=== PATIENT | female | born 1950 | race Caucasian/White ===

== ENCOUNTER 2017-04-16 08:36 | Inpatient (IN) | payer OTHER ==
[2017-03-27 09:13] VITALS: BMI 32.0
--- NOTE | 2017-03-27 09:50 | PAT Medication Instructions ---
Service Date Mar 27, 2017. Current Home Medication List Amlodipine (Norvasc), 2.5 MG PO QPM Ibuprofen (Advil), 400 MG PO PRN Losartan Potassium (Cozaar), 50 MG PO QAM Meloxicam (Mobic), 7.5 MG PO PRN Metoprolol Succ (Toprol Xl) (Toprol-Xl), 50 MG PO QAM Metoprolol Succ (Toprol Xl) (Toprol-Xl), 25 MG PO QPM Pravastatin (Pravachol ), 10 MG PO QPM Medication Instructions For Your Scheduled Surgery - Check with surgeon for instructions: Ibuprofen (Advil), 400 MG PO PRN Meloxicam (Mobic), 7.5 MG PO PRN - Hold the following medications the morning of surgery: Losartan Potassium (Cozaar), 50 MG PO QAM - Take the following medications the morning of surgery with a sip of water: Metoprolol Succ (Toprol Xl) (Toprol-Xl), 50 MG PO QAM - Take the following medications as scheduled the night before surgery: Pravastatin (Pravachol ), 10 MG PO QPM Metoprolol Succ (Toprol Xl) (Toprol-Xl), 25 MG PO QPM Amlodipine (Norvasc), 2.5 MG PO QPM If you have any questions please call us at [phone] or [phone] or [phone]
[2017-03-27 10:15] LABS: BASO % 0.9 %; BASO ABS # 0.07 K/uL (0-0.2); EOS % 1.8 %; EOS ABS # 0.15 K/uL (0-0.5); HEMATOCRIT 43.8 % (37-47); IG# 0.01 K/uL (0.00-0.02); LYMPH % 14.8 %; MEAN CELL VOLUME 88.8 fL (80-100); MEAN CORPUSCULAR HEMOGLOBIN 30.4 pg (25-34); MEAN CORPUSCULAR HGB CONC 34.2 g/dl (32-36); MONO % 10.3 %; MONO ABS # 0.84 K/uL (0.11-0.59); NEUT % 72.1 %; NEUT ABS # 5.86 K/uL (1.4-6.5); PLATELET COUNT 264 K/uL (130-400); RED CELL DISTRIBUTION WIDTH CV 13.1 % (11.5-14.5); RED CELL DISTRIBUTION WIDTH SD 42.6 fL (36.4-46.3); WHITE BLOOD COUNT 8.13 K/uL (4.8-10.8)
--- NOTE | 2017-03-27 10:23 | DIAGNOSTIC IMAGING REPORT ---
TWO VIEW CHEST CLINICAL HISTORY: Preoperative examination. FINDINGS: PA and lateral chest radiographs are obtained. No prior studies are available for comparison at the time of dictation. The cardiomediastinal silhouette is unremarkable. There is atherosclerotic calcification of the thoracic aorta. The lungs and pleural spaces are clear. There is no pneumothorax. The skeletal structures are osteopenic. The bony thorax appears intact. IMPRESSION: No active disease in the chest. Electronically signed by: Uzair Gomes M.D. 03/27/2017 10:22 AM Dictated Date/Time: 03/27/2017 10:21 AM
[2017-03-27 10:44] LABS: INR 0.9 (0.9-1.1); PTT PATIENT 27.1 SECONDS (21.0-31.0)
[2017-03-27 11:41] LABS: CALCIUM 9.2 mg/dl (8.5-10.1); CREATININE 0.6 mg/dl (0.60-1.20); POTASSIUM 4.7 mmol/L (3.5-5.1)
--- NOTE | 2017-04-11 10:14 | HISTORY & PHYSICAL EXAMINATION ---
DATE OF ADMISSION: 04/16/2017 CHIEF COMPLAINT: Bilateral knee pain and discomfort, right side greater than left. HISTORY OF PRESENT ILLNESS: The patient is a 66-year-old white female who presents for treatment of her knees. She has got a long history of bilateral knee pain and discomfort, describes it has gotten worse over time. The left knee has been bothering her longer, but the right side has been more acute and more severe lately. She has been taking anti-inflammatories without much relief. She has had injections which helped her for a couple days and that is about it. The pain is mostly medial. She now wants surgical treatment. The right knee is hurting her more on the left. She has nighttime pain. PAST MEDICAL HISTORY: Significant for: 1. Hypertension. 2. Elevated cholesterol. 3. Unspecified cardiac issues followed by Dr. Sotomayor. 4. TMJ. PAST SURGICAL HISTORY: Include oophorectomy. ALLERGIES: None. CURRENT MEDICINES: 1. Toprol 50 mg. 2. Losartan 50 mg a day. 3. Meloxicam 7.5 mg. 4. Amlodipine 2.5 mg. 5. Metoprolol 25 mg a day. 6. Sodium, pravastatin 10 mg a day. SOCIAL HISTORY: A 66-year-old female. She is from [place]. She does not smoke. No alcohol intake. FAMILY HISTORY: Significant for heart disease, diabetes, unspecified cancer. REVIEW OF SYSTEMS: Negative for diabetes, neurologic problems, vascular problems, bleeding disorders. She does have some underlying cardiac issues mannered by Dr. Sotomayor. No history of blood clots. No history of DVT or PE. PHYSICAL EXAMINATION: GENERAL: Reveals a healthy pleasant, middle-aged female who looks in pretty good health. HEENT: Benign. NECK: Supple. No lymphadenopathy. LUNGS: Clear to auscultation. HEART: Has a regular rate and rhythm. ABDOMEN: Soft, nontender, nondistended. EXTREMITIES: Grossly neurovascularly intact except as follows: Examination of the right knee reveals the patient walks with a varus alignment to her knee. She does have a bit of a varus thrust with weightbearing. She is tender over the medial joint line. She has got bony hypertrophy medially. Small knee effusion. Range of motion is 5-125. No instability. X-RAYS: X-rays of both knees reveal advanced bilateral knee DJD. The left side is actually bit worse than the right, but both of them have essentially complete loss of joint space. She has got osteophytes off the medial femoral condyle and medial tibial plateau bilaterally. ASSESSMENT: A 66-year-old white female with bilateral knee degenerative joint disease, unresponsive to conservative treatment. The right knee is currently bothering her more than the left and she would like to proceed with right knee replacement. PLAN: We will take her to the operating room and do right total knee replacement. The risks and benefits of this procedure were explained to the patient including but not limited to DVT, PE, , infection, neurologic injury, vascular injury, bleeding problem, pain, limited range of motion, stiffness, failure to relieve symptoms, incomplete relief of symptoms, need for further surgery in the future, fracture, leg length inequality, nerve palsy, etc. The patient understands and desires to proceed. Informed consent was obtained. We did talk to her about taking her metoprolol the morning of surgery. She is planning to be discharged to home. She will likely use [facility].
[2017-04-16] VITALS (9 sets, daily range): BP systolic 103–151; BP diastolic 56–90; PULSE 60–95; TEMP 36.3–37; O2SAT 93–98; Ht 157.5 cm; Wt 79.8 kg
[~2017-04-16] VITALS: Ht 157.5 cm; Wt 79.8 kg
[~2017-04-16 08:36] MED LIST: ACETAMINOPHEN 500 MG TAB PO SCH; AMLO2.5T PO; ATROPINE SULFATE 0.1 MG/ML 5ML SYR IV PRN; BUPIVACAINE 0.5 % 5 MG/1 ML PF 10ML VIAL ONE; BUPIVACAINE LIPOSOME 266 MG, BUPIVACAINE/EPINEPHRINE INJ 50 ML, SODIUM CHLORIDE 0.9% PF... INFIL SCH; CEFAZOLIN 2000MG IV PUSH 15 ML IV SCH; EpHEDrine SULFATE INJ 50 MG/ML AMP IV PRN; FAMOTIDINE 20 MG TAB PO SCH; FENTANYL CITRATE INJ 50 MCG/1 ML 2 ML VIAL IV PRN; FENTANYL CITRATE INJ 50 MCG/1 ML 2 ML VIAL ONE; GABAPENTIN 300 MG CAP PO SCH; HYDROmorphone INJ 1 MG/ML SYR IV PRN; IBUP-1050 PO; LACTATED RINGER'S 1000ML 1,000 ML IV SCH; LACTATED RINGER'S 1000ML 500 ML IV SCH; LACTATED RINGER'S 1000ML IV SCH; LOSA50TA6 PO; MELO7.5T5 PO; METO25TA3 PO; METOCLOPRAMIDE HCL 10 MG TAB PO SCH; MIDAZOLAM HCL 1 MG/ML 2ML VIAL ONE; ONDANSETRON INJ 2 MG/ML 2 ML VIAL IV PRN; PRAV20TA PO; SCOPOLAMINE 1.5 MG TDSY TD SCH; TRANEXAMIC ACID INJ 1,000 MG x 1 Bag Preop IV SCH
--- NOTE | 2017-04-16 08:59 | History & Physical Bridge Note ---
H&P Re-Evaluation Bridge Note: I have examined the patient, reviewed the History & Physical and in the interval since the performance of the History & Physical I have noted the following changes of clinical significance: No changes noted
[2017-04-16] MEDS ORDERED: SODIUM CHLORIDE 0.9% PF 50 ML VIAL ONE (11:02)
[2017-04-16] MEDS ORDERED: BACITRACIN 50000 UNIT VIAL ONE (11:02)
[2017-04-16] MEDS ORDERED: BUPIVACAINE LIPOSOME 1/3% 266 MG/20 ML VIAL INFIL ONE (11:02)
[2017-04-16] MEDS ORDERED: BUPIVACAINE 0.25% 30 ML VIAL ONE ×2 (11:02→11:04)
[2017-04-16] MEDS ORDERED: EpINEphrine INJ 1MG/ML AMP 1 MG/ML AMP ONE (11:02)
[2017-04-16] MEDS ORDERED: LIDOCAINE HCL 2% 2 ML VIAL (20MG/ML) ONE (11:03)
[2017-04-16] MEDS ORDERED: ONDANSETRON INJ 2 MG/ML 2 ML VIAL ONE (11:03)
[2017-04-16] MEDS ORDERED: PROPOFOL IV EMULSION 10 MG/ML 20 ML VIAL IV ONE (11:03)
--- NOTE | 2017-04-16 12:52 | [facility] Post Operative Brief Note ---
Immediate Operative Summary Operative Date Apr 16, 2017. Pre-Operative Diagnosis Advanced Right Knee Degenerative Joint Disease Post-Operative Diagnosis Advanced Right Knee Degenerative Joint Disease Procedure(s) Performed Right Total Knee Arthroplasty Surgeon Dr. Sunshine Bird Raiser Surgeon(s) HANNA He Estimated Blood Loss 50 ml Findings Consistent with Post-Op Diagnosis Fluids (cc crystalloids) 1300 cc Specimens A. Right Knee Bone and Tissue Drains None Anesthesia Type MAC Spinal Regional Complication(s) none Disposition Accompanied Pt To Recover: no Disposition: Recovery Room / PACU
[2017-04-16] MEDS ORDERED: SILVER SULFADIAZINE 1% CR 50 GM JAR EXT PRN (13:00)
[2017-04-16] MEDS ORDERED: ZOLPIDEM TARTRATE 5 MG TAB PO PRN (13:00)
[2017-04-16] MEDS ORDERED: DiphenhydrAMINE HCL 50 MG/ML VIAL IV PRN (13:00)
[2017-04-16] MEDS ORDERED: CEFAZOLIN IV 1,000 MG in DEXTROSE 5% 50ML 50 ML IV SCH (13:00)
[2017-04-16] MEDS ORDERED: MAGNESIUM HYDROXIDE SUSP 30 ML UDC PO PRN (13:00)
[2017-04-16] MEDS ORDERED: ALUMINUM/MAGNESIUM/SIMETH (MAALOX MAX) 30 ML UDC PO PRN (13:00)
[2017-04-16] MEDS ORDERED: ONDANSETRON INJ 2 MG/ML 2 ML VIAL IV PRN (13:00)
[2017-04-16] MEDS ORDERED: HYDROmorphone INJ 0.5 MG/0.5 ML SYR IV PRN (13:00)
[2017-04-16] MEDS ORDERED: BISACODYL 10 MG SUPP PR PRN (13:00)
[2017-04-16] MEDS ORDERED: METOCLOPRAMIDE HCL INJ 5 MG/ML 2 ML VIAL IV PRN (13:00)
--- NOTE | 2017-04-16 13:49 | DIAGNOSTIC IMAGING REPORT ---
R KNEE 1 OR 2 VIEWS ROUTINE CLINICAL HISTORY: AP/LATERAL IN PACU RIGHT KNEE postoperative evaluation COMPARISON: None. DISCUSSION: Total right knee arthroplasty. Prosthetic is in good position. Excellent alignment between prosthetic and underlying bone. Expected soft tissue postoperative change. IMPRESSION: Anatomic alignment posttotal right knee arthroplasty. The above report was generated using voice recognition software. It may contain grammatical, syntax or spelling errors. Electronically signed by: Kunal Valenzuela M.D. 04/16/2017 1:48 PM Dictated Date/Time: 04/16/2017 1:47 PM
--- NOTE | 2017-04-16 15:44 | Anesthesiology Progress Note ---
Anesthesia Post Op Note Date & Time Apr 16, 2017 at 15:44 Vital Signs Pain Intensity: 0 Vital Signs Past 12 Hours Date Time Temp Pulse Resp B/P (MAP) Pulse Ox O2 Delivery O2 Flow Rate FiO2 04/16/17 15:30 36.3 69 16 136/76 (96) 94 Room Air 04/16/17 15:17 36.4 68 18 151/72 (98) 98 Nasal Cannula 2.0 04/16/17 14:11 119/58 04/16/17 14:10 54 19 97 04/16/17 14:10 55 19 04/16/17 14:06 126/61 04/16/17 14:05 56 20 98 04/16/17 14:05 56 20 04/16/17 14:01 137/76 04/16/17 14:00 58 20 97 04/16/17 14:00 58 20 04/16/17 13:59 60 24 97 04/16/17 13:59 59 24 04/16/17 13:57 36.2 04/16/17 13:56 136/61 04/16/17 13:54 76 22 04/16/17 13:54 77 22 97 04/16/17 13:49 60 19 04/16/17 13:49 59 19 95 04/16/17 13:46 119/53 04/16/17 13:44 57 17 04/16/17 13:44 58 17 98 04/16/17 13:43 60 21 04/16/17 13:43 59 21 97 04/16/17 13:42 134/50 04/16/17 13:38 58 21 96 04/16/17 13:38 58 21 04/16/17 13:36 131/65 04/16/17 13:33 60 16 04/16/17 13:33 60 16 98 04/16/17 13:32 61 20 04/16/17 13:32 62 20 98 04/16/17 13:31 135/77 04/16/17 13:27 91 24 04/16/17 13:27 91 24 163/80 97 04/16/17 13:22 65 17 04/16/17 13:22 65 17 97 04/16/17 13:21 119/63 04/16/17 13:17 57 18 04/16/17 13:17 57 18 98 04/16/17 13:16 57 21 04/16/17 13:16 57 21 127/60 97 04/16/17 13:11 58 16 04/16/17 13:11 58 16 117/60 95 04/16/17 13:06 61 20 04/16/17 13:06 60 20 116/59 94 04/16/17 13:02 107/50 04/16/17 13:01 69 20 04/16/17 13:01 71 20 96 04/16/17 12:57 90/52 04/16/17 12:56 64 20 95 04/16/17 12:56 36.7 63 16 90/57 96 Nasal Cannula 2 04/16/17 12:56 64 20 04/16/17 10:15 36.9 68 16 130/72 (91) 100 Diffusion Mask 10 04/16/17 09:15 37 79 20 132/90 96 Room Air Notes Mental Status: alert / awake / arousable, participated in evaluation Pt Amnestic to Procedure: Yes Nausea / Vomiting: adequately controlled Pain: adequately controlled Airway Patency, RR, SpO2: stable & adequate BP & HR: stable & adequate Hydration State: stable & adequate Neuraxial Anesthesia: was administered, sensory block is resolving Anesthetic Complications: no major complications apparent
[2017-04-16] MEDS ORDERED: CHECK SCOPOLAMINE PATCH PLACEMENT SCH (16:00)
[2017-04-16] MEDS: D5W AND 1/2NSS + 20MEQ KCL 1,000 ML IV SCH (16:00)
[2017-04-16] MEDS ORDERED: NURSING VERBAL MED ORDER ONE (16:00)
[2017-04-16] MEDS: KETOROLAC TROMETHAMINE 15 MG/ML VIAL IV. SCH ×2 (16:00→21:16)
[2017-04-16] MEDS: FERROUS GLUCONATE 324 MG TAB PO SCH (17:47)
[2017-04-16] MEDS ORDERED: TRANEXAMIC ACID INJ 1,000 MG in SODIUM CHLORIDE 0.9% 100ML 100 ML IV ONE (19:00)
[2017-04-16] MEDS: CEFAZOLIN IV 1,000 MG in SYRINGE 0 ML IV SCH (20:17)
[2017-04-16] MEDS: DOCUSATE SODIUM 100 MG CAP PO SCH (20:18)
[2017-04-16] MEDS: ASPIRIN 81 MG ECTAB PO SCH (20:18)
[2017-04-16] MEDS: AMLODIPINE BESYLATE 5 MG TAB PO SCH (20:20)
[2017-04-16] MEDS: PRAVASTATIN SOD 20 MG TAB PO SCH (20:20)
[2017-04-16] MEDS: SENNA 8.6 MG TAB PO SCH (20:21)
[2017-04-16] MEDS: METOPROLOL SUCC 25MG EXT REL TAB PO SCH (20:24)
[2017-04-16] MEDS: ACETAMINOPHEN 500 MG TAB PO SCH (21:17)
[2017-04-17] MEDS: D5W AND 1/2NSS + 20MEQ KCL 1,000 ML IV SCH ×2 (00:51→08:11)
[2017-04-17] MEDS: KETOROLAC TROMETHAMINE 15 MG/ML VIAL IV. SCH ×4 (03:40→21:01)
[2017-04-17] MEDS: CEFAZOLIN IV 1,000 MG in SYRINGE 0 ML IV SCH (03:41)
[2017-04-17 03:46] VITALS: BP 123/76; PULSE 65; TEMP 36.8; O2SAT 95
[2017-04-17] MEDS: ACETAMINOPHEN 500 MG TAB PO SCH ×3 (05:22→21:00)
[2017-04-17 06:34] LABS: HEMOGLOBIN 12.1 g/dL (12.0-16.0); MEAN CELL VOLUME 88.6 fL (80-100); MEAN CORPUSCULAR HEMOGLOBIN 30.6 pg (25-34); MEAN CORPUSCULAR HGB CONC 34.6 g/dl (32-36); MEAN PLATELET VOLUME 10.8 fL (7.4-10.4); PLATELET COUNT 203 K/uL (130-400); RED CELL DISTRIBUTION WIDTH CV 13.2 % (11.5-14.5); RED CELL DISTRIBUTION WIDTH SD 43.2 fL (36.4-46.3); WHITE BLOOD COUNT 9.88 K/uL (4.8-10.8)
[2017-04-17] MEDS ORDERED: NURSING VERBAL MED ORDER ONE (06:45)
[2017-04-17 07:00] LABS: CALCIUM 8.3 mg/dl (8.5-10.1); CREATININE 0.51 mg/dl (0.60-1.20)
[2017-04-17 07:25] VITALS: BP 104/63; PULSE 60; TEMP 36.8; O2SAT 94
--- NOTE | 2017-04-17 07:54 | PROGRESS NOTE ---
DATE: 04/17/2017 SUBJECTIVE: A 66-year-old white female postop day 1 from a right knee replacement. She is doing well. Pain is controlled. Denies any chest pain or shortness of breath. Not feeling dizzy or lightheaded. OBJECTIVE: VITAL SIGNS: Temperature 36.8. Vital signs stable. GENERAL: Reveals a healthy, pleasant middle-aged female. She is lying in bed, looks pretty comfortable. LUNGS: Clear to auscultation. HEART: Has a regular rate and rhythm. ABDOMEN: Soft, nontender, nondistended. EXTREMITIES: Grossly neurovascularly intact as follows: Examination of the right leg reveals the leg to be well aligned. Dressing is clean, dry and intact. She can dorsiflex and plantarflex her foot appropriately. She is neurologically intact. LABORATORY DATA: Hemoglobin 12.1, hematocrit 35.0. Electrolytes are stable. ASSESSMENT: A 66-year-old white female postop day 1 from right knee replacement, doing pretty well. Pain is controlled. She is neurologically intact. PLAN: 1. DVT prophylaxis including thigh high TEDs, SCDs, and aspirin twice a day. 2. PT, OT. Weight bear as tolerated. Right total knee protocol. 3. Pain control, doing pretty well with current pain regimen. 4. Disposition: She is planning to be discharged to home and she is going to do outpatient therapy at [facility].
[2017-04-17] MEDS: ASPIRIN 81 MG ECTAB PO SCH ×2 (09:18→20:53)
[2017-04-17] MEDS: FERROUS GLUCONATE 324 MG TAB PO SCH ×3 (09:19→17:26)
[2017-04-17] MEDS: DOCUSATE SODIUM 100 MG CAP PO SCH ×2 (09:19→20:53)
[2017-04-17] MEDS: LOSARTAN POTASSIUM 50 MG TAB PO SCH (09:19)
[2017-04-17] MEDS: MULTIVITAMIN TAB PO SCH (09:19)
[2017-04-17] MEDS: METOPROLOL SUCC 25MG EXT REL TAB PO SCH ×2 (09:19→20:58)
[2017-04-17] MEDS: PANTOprazole SOD 40 MG TAB PO SCH (09:20)
[2017-04-17 09:21] VITALS: BP 130/80; PULSE 75
[2017-04-17] MEDS: TRAMADOL HCL 50 MG TAB PO PRN (09:24)
[2017-04-17 16:21] VITALS: BP 138/80; PULSE 69; TEMP 37.1; O2SAT 96
[2017-04-17] MEDS: SENNA 8.6 MG TAB PO SCH (20:53)
[2017-04-17] MEDS: AMLODIPINE BESYLATE 5 MG TAB PO SCH (20:53)
[2017-04-17] MEDS: PRAVASTATIN SOD 20 MG TAB PO SCH (20:53)
[2017-04-17] MEDS ORDERED: ULT50X PO (21:06)
[2017-04-17] MEDS ORDERED: ASPEC81 PO (21:06)
[2017-04-17] MEDS ORDERED: ACET-24 PO (21:06)
--- NOTE | 2017-04-17 21:09 | Discharge Instructions ---
Discharge Instructions Date of Service Apr 17, 2017. Admission Reason for Admission: Right Knee Degenerative Joint Disease Discharge Discharge Diagnosis / Problem: Right Knee Replacement Discharge Goals Goal(s): Decrease discomfort, Improve function, Increase independence, Improve disease control, Therapeutic intervention Activity Recommendations Activity Limitations: per Instructions/Follow-up section Weightbearing Status: Right weightbearing . Instructions / Follow-Up Instructions / Follow-Up ACTIVITY RECOMMENDATIONS: Physical Therapy: * You will go to physical therapy three times each week for four to six weeks after your surgery in order to regain your knee range of motion and to retrain your knee to work properly. * It is just as important to make sure you are getting your knee perfectly straight as it is to regain your knee bend. * Taking a pain pill an hour before therapy can help you have a more productive and comfortable therapy session. Home Exercise: * You were shown a series of exercises (heel props, heel slides, etc.) in the hospital. Do these exercises three to four times each day including the exercises you were shown in physical therapy. Walking: * Get up and walk several times each day. For the first four weeks, try not to stand or walk for more than one hour at a time. If you do stand or walk for more than one hour, you will not hurt anything, but your knee and leg will likely swell. * As you feel comfortable, you may change from the walker or crutches to a cane and then to independent walking. MEDICATIONS: New Medicine: * You will likely be taking one or more of these medications: 1. Tramadol - A quick and shorter-acting pain medication. Take one to two tablets every four to six hours to lessen your pain. 2. Aspirin - Thins your blood to lessen the chance of forming a blood clot. * The most common side effects of pain medicine and iron are nausea and constipation. If nausea or constipation is too much of a problem or if you have any questions about your new medicines or doses, call [facility] at . We will try to help you manage these issues. VERY IMPORTANT TO READ AND REVIEW" Pain: * The immediate post-operative period after knee replacement surgery is often quite painful. * You are given a prescription for pain medicine. You should take it, as directed, when you need it, especially before physical therapy and before going to bed. Pain that interferes with sleep is very common and can last several months. * You will likely need pain medicine for the first four to six weeks. It will not stop all of the pain. The pain will lessen and as you feel better, you may change to milder pain medicine such as Tylenol. * The most common side effects of pain medicine are nausea and constipation, so don't take more than you need. SPECIAL CARE INSTRUCTIONS: TEDs/Elastic Stockings: * The white elastic stockings help limit swelling and prevent blood clots from forming in your legs. The more you wear them, the more they work. * Wear them for six weeks after knee replacement surgery and four weeks after partial knee replacement. Prevention of Infection: * Take antibiotics one hour before any dental cleaning, dental work, urological procedure, gastrointestinal procedure or any invasive surgery in order to prevent your new joint from getting infected. * You may get the antibiotics from the doctor performing the procedure or you may call our office at before and we will call in a prescription to the pharmacy of your choice. Things to Watch For: * Drainage from the incision site that occurs more than one week after your surgery. * Severely increased knee/leg pain or swelling. * Increased redness at the incision site. * Fever above 102 degrees Fahrenheit. * Unusual chest pain or shortness of breath. * Unusual pain or burning with urination. Call [facility] at with any of the above problems or if you have any questions about your medicines or recovery. FOLLOW UP VISIT: Make an appointment to see your doctor for approximately two weeks after surgery for a progress check and staple removal by calling the office at . Current Hospital Diet Patient's current hospital diet: Regular Diet Discharge Diet Recommended Diet: Regular Diet Procedures Procedures Performed: Right Total Knee Arthroplasty Pending Studies Studies pending at discharge: no Medical Emergencies . Who to Call and When: Medical Emergencies: If at any time you feel your situation is an emergency, please call [phone] immediately. . Non-Emergent Contact Non-Emergency issues call your: Surgeon . "Provider Documentation" section prepared by Sukhjinder Sunshine. . VTE Core Measure Inpt VTE Proph given/why not?: Other Anticoagulation, T.E.D. Stockings, SCD's
[2017-04-17 23:13] VITALS: BP 137/83; PULSE 72; TEMP 37; O2SAT 93
[2017-04-18] MEDS: KETOROLAC TROMETHAMINE 15 MG/ML VIAL IV. SCH ×2 (04:08→10:00)
[2017-04-18] MEDS: ACETAMINOPHEN 500 MG TAB PO SCH (05:47)
[2017-04-18 06:28] VITALS: BP 122/79; PULSE 70; TEMP 37; O2SAT 95
[2017-04-18] MEDS: ASPIRIN 81 MG ECTAB PO SCH (07:40)
[2017-04-18] MEDS: FERROUS GLUCONATE 324 MG TAB PO SCH (07:41)
[2017-04-18] MEDS: PANTOprazole SOD 40 MG TAB PO SCH (07:41)
[2017-04-18] MEDS: LOSARTAN POTASSIUM 50 MG TAB PO SCH (07:41)
[2017-04-18] MEDS: MULTIVITAMIN TAB PO SCH (07:41)
[2017-04-18] MEDS: DOCUSATE SODIUM 100 MG CAP PO SCH (07:41)
[2017-04-18] MEDS: METOPROLOL SUCC 25MG EXT REL TAB PO SCH (07:41)
[2017-04-18] MEDS: TRAMADOL HCL 50 MG TAB PO PRN (07:47)
--- NOTE | 2017-04-18 08:28 | PROGRESS NOTE ---
DATE: 04/18/2017 SUBJECTIVE: A 66-year-old white female postop day 2 from right knee placement, doing pretty well. Pain has been controlled. Denies any chest pain or shortness of breath. Not feeling dizzy or lightheaded. OBJECTIVE: VITAL SIGNS: Temperature 37.0. Vital signs stable. PHYSICAL EXAMINATION: GENERAL: Reveals a healthy, pleasant middle-aged female. She is sitting up in bed, awake, alert and oriented and ready to go this morning. EXTREMITIES: Examination of the right leg reveals the dressing to be clean, dry and intact. Calf is soft and supple. She can dorsiflex and plantarflex her foot appropriately. ASSESSMENT: A 66-year-old white female postop day 2 from right knee replacement, doing pretty well. PLAN: 1. DVT prophylaxis including thigh-high TEDs, SCDs, and aspirin twice a day. 2. PT/OT. Weight bear as tolerated. Right total knee protocol. 3. Pain control, doing well with current pain regimen. 4. Disposition: Plan is to discharge her to home and she is going to do outpatient therapy at [facility].
[2017-04-18 10:31] VITALS: BP 122/79; PULSE 70; TEMP 37; O2SAT 95
--- NOTE | 2017-04-29 08:18 | DISCHARGE SUMMARY ---
ADMITTING PHYSICIAN AND SURGEON: Sukhjinder Sunshine MD. ADMITTING DIAGNOSIS: Right knee degenerative joint disease. SURGERY PERFORMED: Right total knee arthroplasty. SECONDARY DIAGNOSES: Include hypertension, elevated cholesterol, specified cardiac issues and TMJ. CONSULTS: None obtained. HISTORY AND PHYSICAL EXAMINATION: Well documented in the patient's chart. HOSPITAL COURSE: The patient was admitted on 04/16/2017, underwent total knee arthroplasty, tolerated the procedure well. There were no complications. She was transferred to the PACU postoperatively and later to the orthopedic floor for further care. She was given Ancef for antibiotic prophylaxis, STEPHANIE stockings, SCDs and aspirin for DVT prophylaxis. Hemoglobin, hematocrit and vital signs were monitored during the hospital stay and remained stable. She did not require any blood transfusions. There were no complications. By postoperative day 2, she was tolerating a regular diet, pain was controlled with oral pain medicine. She was participating in physical therapy. On postop day 2, she was discharged home. She was given printed discharge instructions including new prescriptions for extra strength Tylenol, aspirin and tramadol. Continue her home medications, continue physical therapy, weightbearing as tolerated, STEPHANIE stockings. Follow up in 10-12 days or sooner if there are any problems or concerns.
--- NOTE | 2017-05-04 20:58 | OPERATIVE REPORT ---
DATE OF OPERATION: 04/16/2017 SURGEON: Sukhjinder Sunshine MD. WAX ROOM SUPERVISOR: HANNA Cary. PREOPERATIVE DIAGNOSIS: Right knee degenerative joint disease. POSTOPERATIVE DIAGNOSIS: Same. PROCEDURE PERFORMED: Right cemented posterior stabilized total knee arthroplasty. COMPLICATIONS: None. ESTIMATED BLOOD LOSS: 50 Ml. TOURNIQUET TIME: 50 minutes at 300 mmHg. ANESTHESIA: Spinal. DRAINS: None. SPECIMENS: Right knee sent for pathology. OPERATIVE INDICATION: The patient is a 66-year-old white female who has had a fairly long history of bilateral knee pain and discomfort. The left knee has been bothering longer, but the right knee has been more acute. She has been through extensive conservative treatment and limited by her knee pain. Right knee was bothering more than the left and she elected to proceed with total knee arthroplasty. OPERATIVE FINDINGS: Operative findings revealed advanced right knee DJD. She had grade 4 [id number] disease. A moderate sized joint effusion. Osteophytes in all 3 compartments. OPERATIVE IMPLANTS: Consisted of: 1. Biomet Vanguard size 62.5 right posterior stabilized femoral component. 2. Biomet size 63 tibial tray. 3. A 10 mm posterior stabilized polyethylene insert. 4. A 28 x 8 all poly patella. OPERATIVE PROCEDURE: The patient was taken to the operating room, identified and placed on the operating table in supine position. All contact areas were appropriately padded. IV antibiotics were provided by anesthesia team. A spinal anesthetic had been implemented in the holding area. A Aragon catheter was placed in sterile fashion. A right thigh tourniquet was then placed and the right lower extremity was then prepped and draped in usual sterile fashion. The right leg was elevated and exsanguinated with Esmarch and tourniquet placed at 300 mmHg. An anterior approach of the right knee was then performed through a longitudinal incision centered over the patella. Sharp dissection was carried through subcutaneous tissues down to the level of the extensor mechanism. A medial parapatellar arthrotomy incision was made. Some subperiosteal dissection was carried out medially. The fat pad resected from beneath the patellar tendon. Lateral patellofemoral ligament was released. Patella was everted and knee was flexed. The osteophytes were taken off the distal femur. The ACL and PCL were then released from the distal femur. The tibia subluxated anteriorly. External tibial alignment jig was then placed in the anterior face of the tibia and adjusted 14 mm medially. Proximal tibial cut was made. The tibia was sized to a size 63. Attention was then drawn to the femur. The distal femur was entered with a sharp drill bit. Intramedullary canal was suctioned. A right 5 degree valgus cutting guide was placed. Distal femoral cutting block was pinned in place. Distal femoral cut was made to take an additional 3 mm of bone off the distal femur. The femur was then sized to a size 62.5. The AP cutting block was pinned parallel to the epicondylar axis. The anterior cut, anterior chamfer cut, posterior cut, posterior chamfer cuts were made. Box cutting guide was placed and adjusted slight lateral and the box cut was made. The knee was flexed. The remnants of the medial and lateral menisci were excised. The osteophytes were taken off the posterior aspect of the femur. A trial femoral component was placed. Tibial tray was pinned in maximum external rotation and drill and stem punch were used to create defect in proximal tibia for the tibial tray. The knee was then trialed and the 10 mm insert fit most appropriately. Attention was then drawn to the patella. The patella was cleaned of all soft tissues. Patella was cut and sized to a size 28 patella. Lug holes were drilled for a 28 patella. Lateral osteophyte was removed. Patella button was placed. Knee was taken through range of motion, patella tracked nicely with no thumbs test. Attention was then drawn toward placing the permanent components. All trial components were removed. A bone plug was placed in the distal femur to limit blood loss. A double batch of Palacos G cement was mixed. A right size 62.5 posterior stabilized femoral component, a size 63 tibial tray, a 10 mm posterior stabilized polyethylene insert, and a 28 x 8 all poly patella then cemented in place. The knee was brought out into full extension until cement hardened. A final cement check was then performed. Pericapsular tissues were injected with a total of 100 mL of a combination of 20 mL Exparel, 30 mL of normal saline, 50 mL of 0.25% Marcaine with epinephrine. The tourniquet was then let down for a tourniquet time of 50 minutes. Hemostasis was assured using electrocautery. The extensor mechanism was then closed with a combination of #1 PDS suture and #1 Vicryl suture in a [id number] fashion. The extensor mechanism was checked and found to be intact. Subcutaneous tissues then closed with 2-0 Dexon suture in a buried interrupted fashion. Skin was closed with skin kim. The leg was then cleaned and dried and a sterile dressing with Xeroform, 4 x 4, sterile cast padding and Geovani bandage were applied. The patient was then transferred to the recovery room in stable condition. The patient tolerated the procedure well with no complications. All needle and sponge counts were correct at the end of the operation. I attest to the content of the Intraoperative Record and any orders documented therein. Any exception s are noted below.
== END 2017-04-18 11:41 | disposition home or self-care (01) | DRG 470 ==
LOC: C.ACU 08:36 → C.3E 08:45 → ENRESERV 13:46
PROVIDERS: ADMIT Orthopaedic Surgery Sports Medicine; ATTEND Orthopaedic Surgery Sports Medicine
PROC: 0SRC0J9 Replacement of Right Knee Joint with Synthetic Substitute, Cemented, Open Approach (ICD-10-PCS; principal; 2017-04-16 11:15)
DX: M17.0 Bilateral primary osteoarthritis of knee (principal); I10 Essential (primary) hypertension; E78.00 Pure hypercholesterolemia, unspecified; Z79.899 Other long term (current) drug therapy; Z79.1 Long term (current) use of non-steroidal anti-inflammatories (NSAID)

== ENCOUNTER 2018-07-15 08:19 | Inpatient (IN) ==
--- NOTE | 2018-06-21 14:45 | Anesthesiology Consultation ---
Date of Service June 21, 2018 History Surgery Operation Date: 07/15/18 11:10 Proposed Procedures p Left Total Knee Replacement - Sukhjinder Sunshine MD Height/Weight Height: 5 ft 2 in Weight: 78.018 kg Allergies Allergy/AdvReac Type Severity Reaction Status Date / Time No Known Allergies Allergy Unverified 06/17/18 10:34 Medications Home Medications Medication Instructions Recorded Confirmed Last Taken amlodipine 2.5 mg PO QAM 06/17/18 06/17/18 Unknown aspirin 81 mg PO QAM 06/17/18 06/17/18 Unknown losartan 50 mg PO QAM 06/17/18 06/17/18 Unknown metoprolol succinate [Toprol XL] 25 mg PO QAM 06/17/18 06/17/18 Unknown metoprolol succinate [Toprol XL] 50 mg PO QAM 06/17/18 06/17/18 Unknown rosuvastatin 10 mg PO QPM 06/17/18 06/17/18 Unknown Past Medical History Medical History Asthma NO INHALER USE Cataract Chronic back pain Hearing deficit Hyperlipidemia Hypertension IBS (irritable bowel syndrome) Nonischemic cardiomyopathy FOLLOWS W/ DR. GALARZA Osteoarthritis Temporomandibular joint disorder Past Family History Family History Sister Family history of diabetes mellitus Past Surgical History Surgical History History of bilateral salpingo-oophorectomy (BSO) History of cardiac cath 2009= NO STENTS History of colonoscopy History of right knee joint replacement History of tonsillectomy History of tooth extraction Nausea and vomiting after administration of anesthetic agent Social History Smoking Status: Never smoker Do You Dip or Chew Tobacco: No Hx Alcohol Use: Yes Alcohol type: wine alcohol intake frequency: holidays/special occasions only Hx Substance Use: No substance use type: does not use
--- NOTE | 2018-06-21 14:49 | PAT Medication Instructions ---
Medication Instructions Date of Service June 21, 2018 Home Medications amlodipine 2.5 mg PO QAM aspirin 81 mg PO QAM losartan 50 mg PO QAM metoprolol succinate [Toprol XL] 25 mg PO QAM metoprolol succinate [Toprol XL] 50 mg PO QAM rosuvastatin 10 mg PO QPM DO NOT take the morning of surgery losartan 50 mg PO QAM Take morning of surgery With a small sip of water, OTHERWISE NOTHING TO EAT OR DRINK AFTER MIDNIGHT: amlodipine 2.5 mg PO QAM metoprolol succinate [Toprol XL] 25 mg PO QAM metoprolol succinate [Toprol XL] 50 mg PO QAM aspirin 81 mg PO QAM Take evening before surgery rosuvastatin 10 mg PO QPM Other Notes If you have any questions please call us at [phone] or [phone] or [phone] or [phone]
--- NOTE | 2018-06-22 10:14 | Anesthesiology Consultation ---
Date of Service June 22, 2018 Assessment & Plan (1) Encounter for pre-operative examination: Cardio: 05/03/18: NICM with "recovered" LV function with beta niki and ARB therapy. HTN "controlled." Monitoring thoracic aortic calcification. Continued on same regimen; F/U 6 months recommended. Chart Review Chart Review: Acceptable Risk for Surgery and Patient seen in Pre Admission Testing Teaching & Discussion Pre-Anesthesia Teaching/Discussion Notes: Instructed NPO after midnight before surgery,except medications with 15 cc of water. Medication instructions provided according to the PAT guidelines. History Surgery Operation Date: 07/15/18 11:10 Proposed Procedures p Left Total Knee Replacement - Sukhjinder Sunshine MD Height/Weight Height: 5 ft 2 in Weight: 80.5 kg Allergies Allergy/AdvReac Type Severity Reaction Status Date / Time No Known Allergies Allergy Unverified 06/17/18 10:34 Medications Home Medications Medication Instructions Recorded Confirmed Last Taken amlodipine 2.5 mg PO QAM 06/17/18 06/17/18 Unknown aspirin 81 mg PO QAM 06/17/18 06/17/18 Unknown losartan 50 mg PO QAM 06/17/18 06/17/18 Unknown metoprolol succinate [Toprol XL] 25 mg PO QAM 06/17/18 06/17/18 Unknown metoprolol succinate [Toprol XL] 50 mg PO QAM 06/17/18 06/17/18 Unknown rosuvastatin 10 mg PO QPM 06/17/18 06/17/18 Unknown Past Medical History Medical History Asthma CONTROLLED Cataract RIGHT Chronic back pain Hearing deficit Hyperlipidemia Hypertension IBS (irritable bowel syndrome) Nonischemic cardiomyopathy Osteoarthritis Temporomandibular joint disorder NO RECENT ISSUE X YEARS WITH LOCKING; OCCASIONAL CLICKING Past Family History Family History Sister Family history of diabetes mellitus Past Surgical History Surgical History History of bilateral salpingo-oophorectomy (BSO) History of cardiac cath 2008= NO STENTS History of colonoscopy History of right knee joint replacement History of tonsillectomy History of tooth extraction Past Anesthesia History No Hx of Anesthesia Complications (EXCEPT PONV) and No Family Hx of Anesthesia Complications History of PONV No Family Hx of PONV, No Hx of Motion Sickness and History of PONV Social History Smoking Status: Never smoker Do You Dip or Chew Tobacco: No Hx Alcohol Use: Yes Alcohol type: wine alcohol intake frequency: holidays/special occasions only Hx Substance Use: No substance use type: does not use Review of Systems URI symptoms improving. Occasional reflux. Patient denies chest pain, shortness of breath, cough, wheezing, palpitations. Physical Exam Vital Signs VITALS BP 142/78 P 70 TEMP 98.0 SP02 95%RA RESP 20 PHYSICAL Full neck and c-spine range of motion. Full TMJ range of motion. TMD 2.5 finger breaths Mallampati Score 3 Dentition: missing several sides/molars, crowns on sides/molars Lungs: clear throughout to auscultation Cardiac: regular rate and rhythm, no murmurs noted Spine: normal Carotid arteries: negative bruit Extremities: no edema Testing Electrocardiogram Date: 06/22/18 NSR at 65bpm. NS ST/TWA. Chest X-Ray Date: 06/22/18 Findings: + NAD Lung volumes are normal. There is no consolidation or evidence for pulmonary edema. Cardiomediastinal silhouette is unremarkable. The appearance of the chest is unchanged. Echocardiogram Date: 04/09/17 LVEF 50-54%. No RWMA. Mild AR. Mild MR. Mild LAE. Stress Test Date: 06/18/15 Type: exercise No stress ECHO induced evidence of ischemia. LVEF 55-59%. No RWMA. ST depression noted with stress. Mild LAR. Mild Av sclerosis/AR/MR. Mild proximal ascending aorta enlargement of 4cm. Grade I DD. 125% MPHR. 7 METS. Laboratory Results 06/22/18 10:28 06/22/18 10:28 Blood Type O Positive 06/22/18 10:28 Antibody Screen NEGATIVE 06/22/18 10:28 PT 10.0 Seconds (9.0-12.0) 06/22/18 10:28 INR 1.0 (0.9-1.1) 06/22/18 10:28 APTT 27.5 Seconds (21.0-31.0) 06/22/18 10:28
--- NOTE | 2018-06-22 12:10 | XRay Report ---
XR chest Pre-admission PA/Lat CLINICAL HISTORY: Preoperative evaluation. COMPARISON STUDY: Chest radiograph March 27, 2017. FINDINGS: Lung volumes are normal. There is no pneumothorax or pleural effusion. There is no consolid ation or evidence for pulmonary edema. Cardiomediastinal silhouette is unremarkable. The appearance o f the chest is unchanged. IMPRESSION: No acute cardiopulmonary findings. Electronically signed by: Nathan De La Rosa M.D. 06/22/2018 12:09 PM
[2018-06-22 12:13] LABS: Basophils # (auto) 0.04 K/uL (0-0.2); Basophils % (auto) 0.6 %; Eosinophils # (auto) 0.12 K/uL (0-0.5); Eosinophils % (auto) 1.9 %; Hematocrit (blood only) 42.9 % (37-47); Hemoglobin 14.7 g/dL (12.0-16.0); Immature Granulocytes # (auto) 0.01 K/uL (0.00-0.02); Immature Granulocytes % (auto) 0.2 %; Lymphocytes # (auto) 1.16 K/uL (1.2-3.4); Lymphocytes % (auto) 18.3 %; Mean Corpuscular Hgb Conc 34.3 g/dL (32-36); Mean Corpuscular Volume 88.5 fL (80-100); Mean Platelet Volume 11.5 fL (7.4-10.4); Monocytes # (auto) 0.83 K/uL (0.11-0.59); Monocytes % (auto) 13.1 %; Neutrophils # (auto) 4.19 K/uL (1.4-6.5); Neutrophils % (auto) 65.9 %; Platelet Count 238 K/uL (130-400); RDW Coefficient of Variation 13.2 % (11.5-14.5); Red Blood Count 4.85 M/uL (4.2-5.4); White Blood Count 6.35 K/uL (4.8-10.8)
[2018-06-22 12:23] LABS: Partial Thromboplastin Time 27.5 Seconds (21.0-31.0)
[2018-06-22 12:52] LABS: BUN Creatinine Ratio 30.8 (10-20); Blood Urea Nitrogen 19 mg/dl (7-18); Calcium 9.2 mg/dl (8.5-10.1); Carbon Dioxide 28 mmol/L (21-32); Chloride 104 mmol/L (98-107); Creatinine Clr Calc Pharmacy 85.5 ml/min; Est GFR (African American) 107.2; Est GFR (Non-African American) 92.5; Glucose 104 mg/dl (70-99); Potassium 4.6 mmol/L (3.5-5.1); Sodium 135 mmol/L (136-145)
[2018-06-22 12:54] LABS: C Reactive Protein < 0.29 mg/dl (0-0.29)
--- NOTE | 2018-07-10 10:30 | History and Physical Report ---
DATE OF ADMISSION: 07/15/2018 CHIEF COMPLAINT: Left knee pain. HISTORY OF PRESENT ILLNESS: The patient is a 68-year-old female, a little over a year out from a right knee replacement who presents for surgical treatment of her left knee. She has done well from a right knee replacement. She has become more and more stable by left knee pain. She has a several-year history of increasing left hip pain and discomfort which has gotten worse over time. Pain is mostly on the medial, but some global pain. The more she walks, the more it hurts. She has had injections into the knee, most recently they have not helped much at all. The more she walks, the more she limps. She has nighttime pain. She would like to proceed with left knee replacement. PAST MEDICAL HISTORY: Significant for: 1. Nonischemic cardiomyopathy, followed by Dr. Sotomayor. 2. Hypertension. 3. Elevated cholesterol. 4. TMJ disease. 5. Anemia. 6. Mild obesity, BMI of 33. PAST SURGICAL HISTORY: Previous surgeries include: 1. Oophorectomy. 2. Right knee replacement done on 04/16/2017. ALLERGIES: None. CURRENT MEDICINES: 1. Toprol 50 mg. 2. Losartan 50 mg a day. 3. Meloxicam 7.5 mg. 4. Pravastatin 10 mg a day. 5. Amlodipine 2.5 mg a day. SOCIAL HISTORY: Significant for a 68-year-old female. She is from [place]. She does not smoke. Rare alcohol intake. FAMILY HISTORY: Significant for heart disease, diabetes, unspecified cancer. REVIEW OF SYSTEMS: Significant for a nonischemic cardiomyopathy followed by Dr. Sotomayor. Denies any current chest pain or shortness of breath. No history of DVT or PE. No known bleeding problems. PHYSICAL EXAMINATION: GENERAL: Reveals a healthy, pleasant middle-aged female, looks to be in good health. HEENT: Benign. NECK: Supple. No lymphadenopathy. LUNGS: Clear to auscultation. HEART: Regular rate and rhythm. ABDOMEN: Soft, nontender, nondistended. EXTREMITIES: Grossly neurovascularly intact except as follows: Examination of both knees reveals the patient walks independently. Examination of left knee reveals slight varus alignment. She is tender over the medial joint line. She does have a little bit of varus thrust with weightbearing. She has some bony hypertrophy medially. Range of motion is 5-120. There is no instability. No pain with hip motion. She is neurovascularly intact. Examination of the right knee reveals a well-healed incision. Range of motion 0-125. Good straight leg raise. No instability. X-RAYS: X-rays of the left knee reveal advanced left knee DJD. She has complete loss of medial joint space. She has subchondral sclerosis. She has got osteophytes primarily in the medial femoral condyle and medial tibial plateau. A little bit of tibial femoral subluxation. ASSESSMENT: A 68-year-old white female, a little over a year out from right knee replacement with advanced left knee degenerative joint disease. She has failed conservative treatment and would like to have her left knee replaced. PLAN: We will take her to the operating room and do a left total knee replacement. The risks and benefits of this procedure were explained to the patient including but not limited to DVT, PE, , infection, neurological injury, vascular injury, bleeding problem, pain, limited range of motion, stiffness, failure to relieve symptoms, incomplete relief of symptoms, need for further surgery in future, etc. The patient understands and desires to proceed. Informed consent was obtained. We did talk about stopping her anti-inflammatories about 10 days preop. She is planning to be discharged to home and do outpatient therapy.
[~2018-07-15 08:19] MED LIST changes: -AMLO2.5T PO; -ATROPINE SULFATE 0.1 MG/ML 5ML SYR IV PRN; -BUPIVACAINE LIPOSOME 266 MG, BUPIVACAINE/EPINEPHRINE INJ 50 ML, SODIUM CHLORIDE 0.9% PF... INFIL SCH; +BUPIVACAINE LIPOSOME/PF 266 MG, BUPIVACAINE/EPINEPHRINE 50 ML, SODIUM CHLORIDE 0.9% 30 ... INFIL SCH; +CEFAZOLIN 2000MG 2,000 MG/15 ML SYR IV SCH; -CEFAZOLIN 2000MG IV PUSH 15 ML IV SCH; -EpHEDrine SULFATE INJ 50 MG/ML AMP IV PRN; -FENTANYL CITRATE INJ 50 MCG/1 ML 2 ML VIAL IV PRN; -FENTANYL CITRATE INJ 50 MCG/1 ML 2 ML VIAL ONE; -GABAPENTIN 300 MG CAP PO SCH; +GABAPENTIN 300 MG PO SCH; -HYDROmorphone INJ 1 MG/ML SYR IV PRN; -IBUP-1050 PO; -LACTATED RINGER'S 1000ML 1,000 ML IV SCH; -LACTATED RINGER'S 1000ML 500 ML IV SCH; -LACTATED RINGER'S 1000ML IV SCH; +LIDOCAINE HCL 2% 2 ML VIAL/AMP(20MG/ML) INFIL ONE; -LOSA50TA6 PO; +LR 500ML BOLUS, THEN 15ML/HR IV SCH; +LR 60ML/HR IV SCH; -MELO7.5T5 PO; -METO25TA3 PO; -METOCLOPRAMIDE HCL 10 MG TAB PO SCH; +METOCLOPRAMIDE HCL 10 MG TABLET PO SCH; -ONDANSETRON INJ 2 MG/ML 2 ML VIAL IV PRN; -PRAV20TA PO; +PROPOFOL IV EMULSION 10 MG/ML 20 ML VIAL IV ONE; +ROPIVACAINE 0.5% 5 MG/ML 30 ML VIAL ONE; +TRANEXAMIC ACID 1,000 MG **IV Intra-op IV SCH; -TRANEXAMIC ACID INJ 1,000 MG x 1 Bag Preop IV SCH
--- NOTE | 2018-07-15 08:26 | History & Physical Bridge Note ---
Date of Service July 15, 2018 History & Physical Bridge Note I have examined the patient, reviewed the History & Physical and in the interval since the performance of the History & Physical I have noted the following changes of clinical significance: no changes noted
[2018-07-15] MEDS ORDERED: SODIUM CHLORIDE 0.9% PF 50 ML VIAL ONE (09:23)
[2018-07-15] MEDS ORDERED: BUPIVACAINE LIPOSOME 1.3% 266 MG/20 ML VIAL ONE (09:24)
[2018-07-15] MEDS ORDERED: BACITRACIN INJ 50,000 UNIT VIAL ONE (09:24)
[2018-07-15] MEDS ORDERED: EPINEPHrine INJ 1 MG/ML AMP ONE (09:25)
[2018-07-15] MEDS ORDERED: BUPIVACAINE 0.25% 30 ML VIAL ONE (09:26)
--- NOTE | 2018-07-15 11:47 | Post Operative Brief Note ---
Immediate Post Op Note v1 Date of Surgery July 15, 2018 Pre & Post Diagnosis Operation Date: 07/15/18 10:40 Pre-Op Diagnosis: Left Knee Degenerative Joint Disease with pain Post-Op Diagnosis: Left Knee Degenerative Joint Disease with pain Procedure Operation Date: 07/15/18 10:40 Actual Procedures p Left Total Knee Arthroplasty(Left) - Sukhjinder Sunshine MD Surgeon Sukhjinder Sunshine MD Diet Tech Guillermina, PAC Estimated Blood Loss 50 Findings Consistent with Post-Op Diagnosis Fluids 500 cc Specimens Left Knee Drains Aragon Catheter Anesthesia Type Spinal MAC Complications none Disposition Accompanied Patient To Recovery: No Disposition: Recovery Room
--- NOTE | 2018-07-15 12:32 | XRay Report ---
LEFT KNEE 2 VIEWS History: Left total knee arthroplasty. Degenerative arthritis. Postop. FINDINGS: The patient is status post a left total knee arthroplasty. The hardware is intact. No fract ure or dislocation. Skin kim are in place. IMPRESSION: Left total knee arthroplasty. No evidence for hardware complication. Electronically signed by: Jacek Reyna M.D. 07/15/2018 12:30 PM
--- NOTE | 2018-07-15 12:41 | Anesthesiology Progress Note ---
Date of Service July 15, 2018 Anesthesia Post Procedure Vital Signs Vital Signs: Temp Pulse Resp BP Pulse Ox 07/15/18 12:30 60 18 107/58 L 95 07/15/18 12:20 36.7 C 58 L 21 97/52 L 95 07/15/18 12:10 64 23 124/63 96 07/15/18 12:00 62 23 109/61 96 07/15/18 11:51 37.3 C 74 18 114/58 L 94 07/15/18 08:48 36.9 C 80 16 165/93 H 95 Pain Intensity Left Knee: Pain Intensity: 0 Transfer of Care Handoff Completed per policy Notes Mental Status: alert / awake / arousable and participated in evaluation Patient Amnestic to Procedure: Yes Nausea / Vomiting: adequately controlled Pain: adequately controlled Airway Patency, RR, SpO2: stable & adequate BP & HR: stable & adequate Hydration State: stable & adequate Neuraxial Anesthesia: was administered and sensory block is resolving Anesthetic Complications: no major complications apparent
[2018-07-15] MEDS ORDERED: METOCLOPRAMIDE HCL INJ 5 MG/ML 2 ML VIAL IV PRN (13:18)
[2018-07-15] MEDS ORDERED: ALUMINUM/MAGNESIUM SUSP 30 ML UDC PO PRN (13:18)
[2018-07-15] MEDS ORDERED: NALOXONE HCL 0.4 MG/1 ML VIAL/CARP IV PRN (13:18)
[2018-07-15] MEDS ORDERED: BISACODYL 10 MG SUPP PR PRN (13:18)
[2018-07-15] MEDS ORDERED: ONDANSETRON INJ 2 MG/ML 2 ML VIAL IV PRN (13:18)
[2018-07-15] MEDS ORDERED: MAGNESIUM HYDROXIDE SUSP 30 ML UDC PO PRN (13:18)
[2018-07-15] MEDS ORDERED: TRAMADOL HCL 50 MG TABLET PO PRN (13:18)
[2018-07-15] MEDS ORDERED: HYDROmorphone INJ 0.5 MG/0.5 ML SYR IV PRN (13:18)
[2018-07-15] MEDS ORDERED: ONDANSETRON INJ 2 MG/ML 2 ML VIAL ONE (13:35)
[2018-07-15] MEDS: SODIUM CHLORIDE 0.9% 1000ML 1,000 ML IV SCH ×2 (14:11→22:18)
[2018-07-15] MEDS: ACETAMINOPHEN 500 MG TAB PO SCH ×2 (14:11→21:37)
--- NOTE | 2018-07-15 15:18 | Operative Report ---
DATE OF OPERATION: 07/15/2018 SURGEON: Sukhjinder Sunshine MD EFFICIENCY CLERK: HANNA Cary PREOPERATIVE DIAGNOSIS: Left knee degenerative joint disease. POSTOPERATIVE DIAGNOSIS: Left knee degenerative joint disease. PROCEDURE PERFORMED: Left cemented posterior stabilized total knee arthroplasty. COMPLICATIONS: None. ESTIMATED BLOOD LOSS: 50 mL. FLUID REPLACEMENT: 500 mL crystalloid fluid replacement. ANESTHESIA: Spinal with adductor canal block. DRAINS: None. SPECIMENS: Left knee sent for pathology. OPERATIVE INDICATIONS: The patient is a 68-year-old female who has had a long history of knee problems. She has been through extensive conservative treatment. She underwent a right knee replacement a year ago and has done well from this. She continued to be limited by left knee pain and discomfort. She elected to proceed with total knee arthroplasty. OPERATIVE FINDINGS: Operative findings revealed advanced left knee DJD. She had extensive grade 4 [id number] disease in the medial femoral condyle and medial tibial plateau with osteophytes in the medial compartment. She had a varus deformity to her knee and about 10-degree flexion contracture with moderate to large knee joint effusion. OPERATIVE IMPLANTS: Operative implants consisted of: 1. A Biomet Vanguard size 60 left posterior stabilized femoral component. 2. A Biomet size 67 tibial tray. 3. A 10 mm posterior stabilized polyethylene insert. 4. A 25 x 8 all poly patella. OPERATIVE PROCEDURE: The patient was taken to the operating room, identified and placed on the operating table in supine position. All contact areas were appropriately padded. IV antibiotics were provided by anesthesia team. A spinal anesthetic and adductor canal block had been provided in the holding area. Aragon catheter was placed in sterile fashion. A left thigh tourniquet was then placed and the left lower extremity was then prepped and draped in usual sterile fashion. Left leg was elevated and exsanguinated with Esmarch and tourniquet was placed at 300 mmHg. An anterior approach to the left knee was then performed through a longitudinal incision centered over the patella. Sharp dissection was carried through subcutaneous tissues down to the level of the extensor mechanism. A medial parapatellar arthrotomy incision was made. Some subperiosteal dissection was carried out medially. I did a pretty extensive dissection due to the varus deformity to her knee. The osteophytes were taken off the distal femur. The ACL and PCL were released from distal femur. The tibia subluxated anteriorly. The external tibial alignment jig was then placed in the anterior face of the tibia and adjusted about 14-16 mm medially. Proximal tibial cut was made to essentially flush with the most deficient aspect of the medial tibial plateau. Some osteophytes were taken off medial and posteromedially. Tibia sized to a size 67. Attention was then drawn to the femur. The distal femur was entered with a sharp drill bit. Intramedullary canal was suctioned. A left 5-degree valgus cutting guide was placed. Distal femoral cutting block was pinned in place. Distal femoral cut was made to take an additional 3 mm of bone off the distal femur. Femur was then sized to a size 60. We did downsize this just slightly. The AP cutting block was pinned parallel to the epicondylar axis, which was 6 degrees of external rotation. The anterior cut, anterior chamfer, posterior cut, posterior chamfer cuts were made. Box cutting guide was placed and adjusted slightly lateral and the box cut was made. The knee was flexed. The remnants of the medial and lateral menisci were excised. The osteophytes were taken off the posterior aspect of the femur. Trial femoral component was placed. Tibial tray was pinned in maximum external rotation and the drill and stem punch were used to create defect in proximal tibia for the tibial tray. The knee was then trialed and a 10 mm insert fit most appropriately. Attention was then drawn to the patella. The patella was cleaned of all soft tissues. Patella thickness measured 20 mm in thickness, it was cut down to 13. It was sized to a size 25 patella. Lug holes were drilled for a 25 patella. Lateral osteophyte was removed. Patella button was placed. Knee was taken through range of motion and patella tracked nicely with no thumbs test. Attention was then drawn toward placement of permanent components. All trial components were removed. A bone plug was placed in the distal femur to limit blood loss. A double batch of Palacos G cement was mixed. A Biomet Vanguard size 60 left posterior stabilized femoral component, size 67 tibial tray, a 10 mm posterior stabilized polyethylene insert, and a 25 x 8 all poly patella then cemented in place. Knee was brought out into full extension. A final cement check was then performed. Pericapsular tissues were injected with a total of 100 mL of a combination of 20 mL of Exparel, 30 mL of normal saline, 50 mL of 0.25% Marcaine and 30 mL of normal saline. The wound was once again irrigated. The tourniquet was let down for a tourniquet time of 56 minutes. Hemostasis was assured with use of electrocautery. The extensor mechanism was then closed with a combination of #1 PDS suture and #1 Vicryl suture in a [id number] fashion. Extensor mechanism was checked and found to be intact. The subcutaneous tissue was then closed with 2-0 Dexon suture in a buried interrupted fashion. Skin was closed with skin kim. Leg was then cleaned and dried and a sterile dressing of Xeroform, 4 x 4's, sterile cast padding and Geovani bandage were applied. The patient then transferred to the recovery room in stable condition. The patient tolerated the procedure well with no complication. All needle and sponge counts were correct at the end of the operations. I attest to the content of the Intraoperative Record and any orders documented therein. Any exception s are noted below.
[2018-07-15] MEDS: CHECK SCOPOLAMINE PATCH PLACEMENT SCH (15:43)
[2018-07-15] MEDS: KETOROLAC TROMETHAMINE 15 MG/ML VIAL IV SCH ×2 (15:45→21:37)
[2018-07-15] MEDS: ASCORBIC ACID 500 MG TAB PO SCH (17:58)
[2018-07-15] MEDS: FERROUS GLUCONATE 324 MG TAB PO SCH (17:58)
[2018-07-15] MEDS ORDERED: TRANEXAMIC ACID 1,000 MG in 0.9 % SODIUM CHLORIDE 100 ML IV SCH (18:00)
[2018-07-15] MEDS: CEFAZOLIN 2000MG 2,000 MG/15 ML SYR IV SCH (18:09)
[2018-07-15] MEDS: SENNA 8.6 MG TAB PO SCH (21:37)
[2018-07-15] MEDS: ASPIRIN 81 MG ECTAB PO SCH (21:37)
[2018-07-15] MEDS: DOCUSATE SODIUM 100 MG CAP PO SCH (21:37)
[2018-07-15] MEDS: ROSUVASTATIN CALCIUM 10 MG TAB PO SCH (21:37)
[2018-07-16] MEDS: CHECK SCOPOLAMINE PATCH PLACEMENT SCH (00:01)
[2018-07-16] MEDS: CEFAZOLIN 2000MG 2,000 MG/15 ML SYR IV SCH (03:00)
[2018-07-16] MEDS: KETOROLAC TROMETHAMINE 15 MG/ML VIAL IV SCH ×4 (03:00→20:53)
[2018-07-16 05:59] LABS: Hemoglobin 11.5 g/dL (12.0-16.0); Mean Corpuscular Hgb Conc 33.8 g/dL (32-36); Mean Corpuscular Volume 89.2 fL (80-100); Platelet Count 164 K/uL (130-400); RDW Coefficient of Variation 13.3 % (11.5-14.5); RDW Standard Deviation 43.5 fL (36.4-46.3); Red Blood Count 3.81 M/uL (4.2-5.4); White Blood Count 8.33 K/uL (4.8-10.8)
[2018-07-16] MEDS: ACETAMINOPHEN 500 MG TAB PO SCH ×3 (06:12→20:52)
[2018-07-16 06:28] LABS: BUN Creatinine Ratio 25.4 (10-20); Calcium 8.1 mg/dl (8.5-10.1); Creatinine Clr Calc Pharmacy 91.6 ml/min; Est GFR (African American) 109.6; Est GFR (Non-African American) 94.6; Potassium 3.8 mmol/L (3.5-5.1)
--- NOTE | 2018-07-16 07:58 | Progress Note ---
DATE: 07/16/2018 SUBJECTIVE: A 68-year-old white female postop day 1 from a left knee replacement. She is doing pretty well. Had a pretty good night. Pain is controlled. Denies any chest pain or shortness of breath. Not feeling dizzy or lightheaded. OBJECTIVE: VITAL SIGNS: Temperature 36.8. Vital signs stable. GENERAL: Physical examination shows a pleasant elderly female. She is sitting up in bed, doing heel props and looks pretty comfortable. LUNGS: Clear to auscultation. HEART: Regular rate and rhythm. ABDOMEN: Soft, nontender, nondistended. EXTREMITIES: Grossly neurovascularly intact except as follows: Examination of the left lower extremity reveals the leg to be well aligned. Dressing is clean, dry and intact. She can dorsiflex and plantarflex her foot appropriately. She is neurologically intact. LABORATORY DATA: Hemoglobin 11.5, hematocrit 34.0. Electrolytes are stable. ASSESSMENT: A 68-year-old white female postop day 1 from left knee replacement, doing pretty well. Pain has been pretty well controlled. She is neurologically intact. PLAN: 1. DVT prophylaxis including thigh-high TEDs, SCDs, and aspirin twice a day. 2. PT/OT. Weight bear as tolerated. Left total knee protocol. 3. Pain control, doing pretty well with current pain regimen. 4. Disposition: She is planning to be discharged to home and would like to do home health. We will have social worker health services to see her this morning and look into that.
[2018-07-16] MEDS: AMLODIPINE BESYLATE 5 MG TAB PO SCH (08:12)
[2018-07-16] MEDS: METOPROLOL SUCC 50MG EXT REL TAB PO SCH (08:15)
[2018-07-16] MEDS: LOSARTAN POTASSIUM 50 MG TAB PO SCH (08:15)
[2018-07-16] MEDS: ASCORBIC ACID 500 MG TAB PO SCH ×2 (08:15→17:35)
[2018-07-16] MEDS: METOPROLOL SUCC 25MG EXT REL TAB PO SCH (08:15)
[2018-07-16] MEDS: FERROUS GLUCONATE 324 MG TAB PO SCH ×2 (08:16→17:35)
[2018-07-16] MEDS: DOCUSATE SODIUM 100 MG CAP PO SCH ×2 (08:16→20:52)
[2018-07-16] MEDS: MULTIVITAMIN TAB PO SCH (08:16)
[2018-07-16] MEDS ORDERED: METOPROLOL SUCC 25MG EXT REL TAB PO SCH (09:00)
[2018-07-16] MEDS: ASPIRIN 81 MG ECTAB PO SCH ×2 (09:18→20:52)
--- NOTE | 2018-07-16 09:35 | Anesthesiology Progress Note ---
Date of Service July 16, 2018 Anesthesia Post Procedure Vital Signs Vital Signs: Temp Pulse Pulse Resp BP Pulse Ox 07/16/18 07:06 36.8 C 61 16 108/63 95 07/16/18 03:09 36.8 C 62 16 138/72 96 07/15/18 23:03 36.5 C 61 16 117/68 95 07/15/18 18:52 36.6 C 61 19 144/79 H 95 07/15/18 16:00 36.4 C L 58 L 18 107/67 93 07/15/18 15:07 36.4 C L 74 20 95/60 L 95 07/15/18 14:00 36.9 C 61 18 116/76 98 07/15/18 13:21 36.5 C 87 16 135/75 96 07/15/18 13:00 36.9 C 67 18 124/68 97 07/15/18 12:50 37.2 C 62 18 116/55 L 96 07/15/18 12:40 37.2 C 62 18 115/57 L 96 07/15/18 12:30 60 18 107/58 L 95 07/15/18 12:20 36.7 C 58 L 21 97/52 L 95 07/15/18 12:10 64 23 124/63 96 07/15/18 12:00 62 23 109/61 96 07/15/18 11:51 37.3 C 74 18 114/58 L 94 Pain Intensity Left Knee: Pain Intensity: 2 Notes Mental Status: alert / awake / arousable Patient Amnestic to Procedure: Yes Nausea / Vomiting: adequately controlled Pain: adequately controlled Airway Patency, RR, SpO2: stable & adequate BP & HR: stable & adequate Hydration State: stable & adequate Neuraxial Anesthesia: was administered and sensory block resolved Anesthetic Complications: no major complications apparent
[2018-07-16] MEDS: ROSUVASTATIN CALCIUM 10 MG TAB PO SCH (20:52)
[2018-07-16] MEDS: SENNA 8.6 MG TAB PO SCH (20:53)
[2018-07-17] MEDS: KETOROLAC TROMETHAMINE 15 MG/ML VIAL IV SCH ×2 (04:17→09:21)
[2018-07-17] MEDS: ACETAMINOPHEN 500 MG TAB PO SCH (06:22)
--- NOTE | 2018-07-17 08:20 | Progress Note ---
DATE: 07/17/2018 SUBJECTIVE: A 68-year-old white female postop day 2 from left knee replacement. She is doing pretty well. Some pain, but controlled. No chest pain or shortness of breath. Not feeling dizzy or lightheaded. OBJECTIVE: VITAL SIGNS: Temperature 36.9. Vital signs stable. GENERAL: Physical examination shows a pleasant elderly female. She is sitting up in bed, looks pretty comfortable this morning. EXTREMITIES: Examination of the left leg reveals the incision to be clean, dry and intact. Some moderate swelling. Little bruising in her calf area. Her calf is soft and supple. She can dorsiflex and plantarflex her foot appropriately. She is neurologically intact. ASSESSMENT: A 68-year-old white female postop day 2 from left knee replacement, doing pretty well. Pain is controlled. PLAN: 1. DVT prophylaxis including thigh-high TEDs, SCDs, and aspirin twice a day. 2. PT/OT. Weight bear as tolerated. Left total knee protocol. 3. Pain control, doing well with current pain regimen. 4. Disposition: She now would like to have home health as she tried to call outpatient therapy and could not get an appointment for a week. We will have social service to see her and arrange that.
[2018-07-17] MEDS: DOCUSATE SODIUM 100 MG CAP PO SCH (09:21)
[2018-07-17] MEDS: AMLODIPINE BESYLATE 5 MG TAB PO SCH (09:22)
[2018-07-17] MEDS: METOPROLOL SUCC 25MG EXT REL TAB PO SCH (09:22)
[2018-07-17] MEDS: ASCORBIC ACID 500 MG TAB PO SCH (09:22)
[2018-07-17] MEDS: ASPIRIN 81 MG ECTAB PO SCH (09:22)
[2018-07-17] MEDS: METOPROLOL SUCC 50MG EXT REL TAB PO SCH (09:22)
[2018-07-17] MEDS: LOSARTAN POTASSIUM 50 MG TAB PO SCH (09:23)
[2018-07-17] MEDS: MULTIVITAMIN TAB PO SCH (09:23)
[2018-07-17] MEDS: FERROUS GLUCONATE 324 MG TAB PO SCH (09:23)
--- NOTE | 2018-07-21 16:45 | Discharge Summary ---
ADMITTING PHYSICIAN AND SURGEON: Dr. Sukhjinder Sunshine. ADMITTING DIAGNOSIS: Left knee degenerative joint disease. SURGERY PERFORMED: Left total knee arthroplasty. SECONDARY DIAGNOSES: Nonischemic cardiomyopathy, hypertension, elevated cholesterol, TMJ disease, anemia, mild obesity. CONSULTS: None obtained. HISTORY AND PHYSICAL EXAMINATION: Well documented in the patient's chart. HOSPITAL COURSE: The patient was admitted on 07/15/2018 underwent total knee arthroplasty, tolerated the procedure well. There were no complications. She was transferred to the PACU postoperatively and later to the orthopedic for further care. She was given Ancef for antibiotic prophylaxis, STEPHANIE stockings, SCDs and aspirin for DVT prophylaxis. Hemoglobin, hematocrit and vital signs were monitored during her hospital stay and remained stable. She did not require any blood transfusions. There were no complications. By postoperative day 2, she was tolerating a regular diet, pain was controlled with oral pain medicine. She was participating in physical therapy. On postop day 2, she was discharged home, set up with home health services. She was given printed discharge instructions including new prescriptions for extra strength Tylenol, aspirin and tramadol. Continue her home medications with the exception of her home dose of aspirin, which was changed. Continue physical therapy, weightbearing as tolerated, STEPHANIE stockings. Follow up approximately 2 weeks postop or sooner if there are any problems or concerns.
== END 2018-07-17 10:37 | disposition home health service (06) | DRG 470 ==
LOC: ASU 08:19 → 3E 11:51